=== PATIENT | female | born 1970 | race Caucasian/White ===

== ENCOUNTER 2017-04-12 08:31 | Observation (INO) | payer BC ==
--- NOTE | 2017-04-12 08:45 | EDPHY ---
H & P Stated Complaint: mid sternal cp/did have fall skiing thurs last week/stabbing pain Time Seen by Provider: 04/12/17 08:45 - Personal History LMP (Females 10-55): Irregular Current Tetanus/Diphtheria Vaccine: Unsure - Medical/Surgical History Hx Asthma: No Hx Chronic Respiratory Disease: No Hx Diabetes: No Hx Cardiac Disease: No Hx Renal Disease: No Hx Cirrhosis: No Hx Alcoholism: No Hx HIV/AIDS: No Hx Splenectomy or Spleen Trauma: No Other PMH: denies - Social History Smoking Status: Never smoked Constitutional: Initial Vital Signs Temperature (C) 37 C 04/12/17 08:34 Heart Rate 64 04/12/17 08:34 Respiratory Rate 16 04/12/17 08:34 Blood Pressure 135/84 H 04/12/17 08:34 O2 Sat (%) 97 04/12/17 08:34 O2 Delivery Mode Room Air Allergies/Adverse Reactions: No Known Allergies Allergy (Unverified 04/12/17 08:33) Home Medications: Medication Instructions Recorded Acetaminophen [Tylenol 325mg (*)] 325 mg PO Q6HRS PRN 04/12/17 Cholecalciferol Vit D3 [Vitamin D3 1,000 units PO DAILY 04/12/17 (*)] Ibuprofen [Motrin (*)] 200 mg PO Q6HRS PRN 04/12/17 Levothyroxine [Synthroid 88 mcg 88 mcg PO DAILY06 04/12/17 (*)] Multivitamins [Multivitamin (*)] 1 each PO DAILY 04/12/17 Zolpidem Tartrate [Ambien 5MG (*)] 5 mg PO HS PRN 04/12/17 Medical Decision Making - Diagnostics Imaging Results: Imaging Impressions Abdomen Ultrasound 04/12/17 08:49 Impression: 1. Acalculous cholecystitis with circumferential gallbladder wall thickening, surrounding edema and pericholecystic fluid. 2. No biliary ductal dilation. Findings and recommendations discussed with Emergency Department physician, Sheldon Vera MD at 9:45 hour, 04/12/2017. Final report concurs with initial preliminary interpretation. Imaging: Discussed imaging studies w/ inbound call center representative Radiologist ED Course/Re-evaluation: CHIEF COMPLAINT: Chest pain HISTORY OF PRESENT ILLNESS: This patient is a healthy 46 year old female complaining of midsternal chest pain. This began on Tuesday, two days ago. The discomfort radiates to her right abdomen. Last week on , the patient was back-country skiing and fell. She did not have any chest pain or difficulty breathing on exertion during this trip. She did not have any immediate pain following her fall and denies any other pain or trauma. Currently, she has discomfort in her right upper abdominal region and lower sternal area. No fever, vomiting, diarrhea, shortness of breath, or other associated symptoms. She denies any family history of gallbladder disease. No personal history of abdominal surgery. REVIEW OF SYSTEMS: A 10 point review of systems was performed and is negative with the exception of the elements mentioned in the history of present illness. PHYSICAL EXAM: HR, BP, O2 Sat, RR. Temp noted General Appearance: Alert, well hydrated, appropriate, and non-toxic appearing. Head: Atraumatic without scalp tenderness or obvious injury Eyes: Pupils equal, round, reactive to light and accommodation, EOMI, no trauma , no injection. Ears: Clear bilaterally, no perforation, normal landmarks Nose: Atraumatic, no rhinorrhea, clear. Throat: There is no erythema or exudates, no lesions, normal tonsils, mucus membranes moist. Neck: Supple, nontender, no lymphadenopathy. Respiratory: No retractions, no distress, no wheezes, and no accessory muscle use. Lungs are clear to auscultation bilaterally. Cardiovascular: Regular rate and rhythm, no murmurs, rubs, or gallops. Bilateral carotid, radial, dorsalis pedis, and posterior tibial pulses intact. Good capillary refill all extremities. Gastrointestinal: Right upper quadrant tenderness. Abdomen is soft, non- distended, no masses, no rebound, no guarding, no peritoneal signs. Musculoskeletal: Normal active ROM of all extremities, atraumatic. Neurological: Alert, appropriate, and interactive. Nonfocal neuro exam. Skin: No rashes, good turgor, no nodules on palpation. Past medical history: Hypothyroid. Past surgical history: No history of abdominal surgery. Family history: Noncontributory. Social history: Lives in [place]. . Works as a teacher. PCP Dr. Sandoval DIAGNOSTICS/PROCEDURES/CRITICAL CARE TIME: 08:59 The 12 lead EKG was interpreted by myself. See hard copy and/or "tracemaster" electronic copy for interpretation. Sinus rhythm, rate 50. DIFFERENTIAL DIAGNOSIS: The differential diagnosis for the patient's chest and upper abdominal pain included but was not limited to myocardial ischemia, cholecystitis, pulmonary embolus, chest wall pain, pleural inflammation, and pulmonary infectious causes. MEDICAL DECISION MAKIN46 year old female presents with midsternal and right upper abdominal pain. RUQ tenderness on exam. Plan for US upper abdomen. Labs including CBC, chemistries, troponin, liver/lipase. Plan to administer 1mg IV Dilaudid, 30mg IV Ketorolac, and 4mg IV Zofran. Patient's presentation is more consistent with cholecystitis or other upper abdominal processes than cardiac or respiratory processes. EKG shows sinus rhythm. 09:43 Liver enzymes elevated. WBC within normal limits. 09:[address] Brooke, radiologist. US abdomen positive for sonographic evidence of cholecystitis. No visible stones or ductal dilation, but thickened cobb are present. Plan to consult with general surgery. 09:[address] Staples, general surgeon. She will consult for acalculous cholecystitis. - Data Points Laboratory Results: Laboratory Results 04/12/17 08:55 04/12/17 08:55 04/12/17 04/12/17 04/12/17 08:55 08:55 08:55 WBC 5.63 10^3/uL 10^3/uL (3.80-9.50) RBC 4.22 10^6/uL 10^6/uL (4.18-5.33) Hgb 12.8 g/dL g/dL (12.6-16.3) Hct 38.7 % % (38.0-47.0) MCV 91.7 fL fL (81.5-99.8) MCH 30.3 pg pg (27.9-34.1) MCHC 33.1 g/dL g/dL (32.4-36.7) RDW 14.0 % % (11.5-15.2) Plt Count 251 10^3/uL 10^3/uL (150-400) MPV 10.1 fL fL (8.7-11.7) Neut % (Auto) 69.8 % % (39.3-74.2) Lymph % (Auto) 22.7 % % (15.0-45.0) [place] % (Auto) 5.2 % % (4.5-13.0) Eos % (Auto) 1.4 % % (0.6-7.6) Baso % (Auto) 0.7 % % (0.3-1.7) Nucleat RBC Rel Count 0.0 % % (0.0-0.2) Absolute Neuts (auto) 3.93 10^3/uL 10^3/uL (1.70-6.50) Absolute Lymphs (auto) 1.28 10^3/uL 10^3/uL (1.00-3.00) Absolute Monos (auto) 0.29 10^3/uL L 10^3/uL (0.30-0.80) Absolute Eos (auto) 0.08 10^3/uL 10^3/uL (0.03-0.40) Absolute Basos (auto) 0.04 10^3/uL 10^3/uL (0.02-0.10) Absolute Nucleated RBC 0.00 10^3/uL 10^3/uL (0-0.01) Immature Gran % 0.2 % % (0.0-1.1) Immature Gran # 0.01 10^3/uL 10^3/uL (0.00-0.10) Sodium 143 mEq/L mEq/L (135-145) Potassium 4.3 mEq/L mEq/L (3.5-5.2) Chloride 108 mEq/L mEq/L (97-110) Carbon Dioxide 22 mEq/l mEq/l (22-31) Anion Gap 13 mEq/L mEq/L (8-16) BUN 24 mg/dL H mg/dL (7-23) Creatinine 0.9 mg/dL mg/dL (0.6-1.0) Estimated GFR > 60 Glucose 86 mg/dL mg/dL (70-100) Calcium 9.4 mg/dL mg/dL (8.5-10.4) Total Bilirubin 0.6 mg/dL mg/dL (0.1-1.4) Conjugated Bilirubin 0.1 mg/dL mg/dL (0.0-0.5) Unconjugated Bilirubin 0.5 mg/dL mg/dL (0.0-1.1) AST 80 IU/L H IU/L (14-46) ALT 181 IU/L H IU/L (9-52) Alkaline Phosphatase 84 IU/L IU/L (38-126) Total Protein 6.8 g/dL g/dL (6.3-8.2) Albumin 4.2 g/dL g/dL (3.5-5.0) Lipase 153 IU/L IU/L (23-300) Beta HCG, Qual NEGATIVE Medications Given: Discontinued Medications Ertapenem (Invanz) 1 gm IVP EDNOW ONE PRN Reason: Protocol Stop: 04/12/17 09:47 Last Admin: 04/12/17 10:01 Dose: 1 gm Hydromorphone HCl (Dilaudid) 1 mg IVP EDNOW ONE Stop: 04/12/17 08:50 Last Admin: 04/12/17 09:21 Dose: 1 mg Sodium Chloride (Ns) 1,000 mls @ 0 mls/hr IV EDNOW ONE; Wide Open PRN Reason: Protocol Stop: 04/12/17 08:50 Last Admin: 04/12/17 09:24 Dose: 1,000 mls Sodium Chloride (Ns) 1,000 mls @ 0 mls/hr IV ONCE ONE PRN Reason: Wide Open Stop: 04/12/17 10:21 Last Admin: 04/12/17 10:20 Dose: 1,000 mls Ketorolac Tromethamine (Toradol) 30 mg IVP EDNOW ONE Stop: 04/12/17 08:50 Last Admin: 04/12/17 09:21 Dose: 30 mg Ondansetron HCl (Zofran) 4 mg IVP EDNOW ONE Stop: 04/12/17 08:50 Last Admin: 04/12/17 09:21 Dose: 4 mg Departure - Departure Disposition: To OP Cath/Surgery Clinical Impression: Cholecystitis, acute Condition: Fair Report Scribed for: Sheldon Vera Report Scribed by: Maricruz Medina Date of Report: 04/12/17 Time of Report: 09:34
[2017-04-12] MEDS ORDERED: ONDANSETRON 4 MG/2 ML VIAL IVP ONE (08:49)
[2017-04-12] MEDS ORDERED: HYDROmorphONE/DILAUDID 1 MG/ML INJ IVP ONE (08:49)
[2017-04-12] MEDS ORDERED: NS 1,000 ML IV ONE ×2 (08:49→10:20)
[2017-04-12] MEDS ORDERED: KETOROLAC 30 MG/1 ML SDV IVP ONE (08:49)
--- NOTE | 2017-04-12 08:54 | CPEKG ---
Heart Rate: 50 RR Interval: 1200 P-R Interval: 144 QRSD Interval: 82 QT Interval: 444 QTC Interval: 405 P [place]: 10 QRS [place]: 15 T Wave [place]: 10 EKG Severity - NORMAL ECG - EKG Impression: SINUS RHYTHM Electronically Signed By: Sheldon Vera 12-Apr-2017 14:09:33
[2017-04-12 09:05] LABS: PLATELET COUNT 251 10^3/uL (150-400)
[2017-04-12] MEDS ORDERED: ERTAPENEM 1 GM VIAL IVP ONE (09:46)
[2017-04-12] MEDS ORDERED: ACETAMINOPHEN 325 MG TAB PO PRN (10:37)
[2017-04-12] MEDS ORDERED: ZOLPIDEM TARTRATE 5 MG TAB PO PRN (10:37)
[2017-04-12] MEDS ORDERED: D5W 1/2 NS W/ 20 KCl/L 1,000 ML IV SCH (10:45)
[2017-04-12] MEDS: ONDANSETRON 4 MG/2 ML VIAL IVP PRN ×2 (10:55→18:27)
--- NOTE | 2017-04-12 13:29 | GCON ---
[f rep st] CONSULTATION HISTORY OF PRESENT ILLNESS: The patient is a 46-year-old female with a past history of hypothyroidism, presenting for right upper quadrant pain for the last 2-3 days. The patient was country skiing last week, returned home Tuesday , where she started to experience colicky right upper quadrant pain. Tuesday evening, this pain became constant and increased. Pain continued through Tuesday and worsened today, which brought her into the ER for evaluation. She describes the pain as a sharp, stabbing, aching pain in the right upper quadrant , which radiates laterally. It keeps her up at night. It is made worse when lying on her right side and with taking deep breaths. It is made better by lying on her back. Advil and Tylenol have offered no relief. She denies any fevers, chills, nausea, vomiting, diarrhea. The pain is not made worse with food. PAST MEDICAL HISTORY: Hypothyroidism ALLERGIES: No known drug allergies. MEDICATIONS: Levothyroxine. SOCIAL HISTORY: No tobacco use. 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 REVIEW OF SYSTEMS: 10 point review of systems negative except HPI PHYSICAL EXAM: General: Pleasant, well-nourished and well-groomed woman HENT: Normocephalic, no gross hearing deficits, mucous membranes moist, pupils equal and round, no scleral icterus Neck: Trachea midline, no cervical lymphadenopathy Lungs: Clear to auscultation bilaterally, No increased work of breathing Cardiac: Regular rate, no peripheral edema Abdomen: Bowel sounds present, soft and nontender. Pain in epigastric area and right upper quadrant. No palpable Mass Skin: Warm and dry. MSK: Normal nails Psych: Mood and affect normal Neuro: Grossly intact LABORATORY DATA: Results reviewed. WBC wnl. Elevated AST of 80, elevated ALT of 181. Ultrasound imaging showed wall thickening at 7 mm, with pericholecystic fluid. ASSESSMENT: The patient is a 46-year-old female with acalculous cholecystitis. PLAN: I will take her to the operating room for laparoscopic cholecystectomy the risks and benefits including but not limited to stroke, heart attack, , blood clots, infection, bleeding, damage to surrounding structures such as the common bile duct and need for additional procedures were discussed. Bianka computer education teacher to the OR /[id number]/MODL MTDD
[2017-04-12] MEDS ORDERED: BUPIVACAINE 0.5% 10 ML SDV ONE ×2 (13:31→15:41)
--- NOTE | 2017-04-12 15:33 | ASMTCMCOM ---
CM Note CM Note Notes: Patient admitted through ED for c/o of abdominal pain. Likely needs cholysystectomy. For surgery. Most likely to dc Independently. CM to follow. Date Signed: 04/12/2017 03:32 PM Electronically Signed By:Maria T Conrad RN
[2017-04-12] MEDS ORDERED: LR 1,000 ML IV ONE (15:52)
[2017-04-12] MEDS ORDERED: MIDAZOLAM 2 MG/2 ML VIAL ONE (16:14)
[2017-04-12] MEDS ORDERED: MIDAZOLAM 2 MG/2 ML VIAL IVP ONE (16:15)
--- NOTE | 2017-04-12 16:18 | PDANEPAE ---
ANE History of Present Illness laparoscopic cholecystectomy ANE Past Medical History - Pulmonary History Hx Oxygen in Use at Home: No Hx Sleep Apnea: No Sleep Apnea Screening Result - Last Documented: Negative - Endocrine History Hx Diabetes: No - Chronic Pain History Chronic Pain: Yes ANE Review of Systems Review of systems is: negative Review of Systems: - Exercise capacity METS (RN): 4 METS ANE Patient History - Allergies Allergies/Adverse Reactions: No Known Allergies Allergy (Unverified 04/12/17 08:33) - Home Medications Home medications: home medication list seen and reviewed Home Medications: Acetaminophen [Tylenol 325mg (*)] 325 mg PO Q6HRS PRN 04/12/17 [Last Taken Unknown] Cholecalciferol Vit D3 [Vitamin D3 (*)] 1,000 units PO DAILY 04/12/17 [Last Taken Unknown] Ibuprofen [Motrin (*)] 200 mg PO Q6HRS PRN 04/12/17 [Last Taken Unknown] Levothyroxine [Synthroid 88 mcg (*)] 88 mcg PO DAILY06 04/12/17 [Last Taken ] Multivitamins [Multivitamin (*)] 1 each PO DAILY 04/12/17 [Last Taken Unknown] Zolpidem Tartrate [Ambien 5MG (*)] 5 mg PO HS PRN 04/12/17 [Last Taken 1 Week Ago ~04/05/17] - NPO status NPO Status: no food or drink >8 hours NPO Since - Liquids (Date): 04/12/17 NPO Since - Liquids (Time): 07:30 NPO Since - Solids (Date): 04/12/17 NPO Since - Solids (Time): 07:30 - Smoking Hx Smoking Status: Never smoked ANE Labs/Vital Signs - Labs Result Diagrams: 04/12/17 08:55 04/12/17 08:55 - Vital Signs Blood Pressure: 136/67 Heart Rate: 46 Respiratory Rate: 18 O2 Sat (%): 98 Height: 162.56 cm Weight: 58.967 kg ANE Physical Exam - Airway Neck exam: FROM Mallampati Score: Class 1 Mouth exam: normal dental/mouth exam - Pulmonary Pulmonary: no respiratory distress - Cardiovascular Cardiovascular: regular rate and rhythym - ASA Status ASA Status: II ANE Anesthesia Plan Anesthesia Plan: general endotracheal anesthesia
[2017-04-12] MEDS ORDERED: fentaNYL 250 MCG/5 ML INJ ONE (16:27)
[2017-04-12] MEDS ORDERED: SUGAMMADEX SODIUM 200 MG/2 ML VIAL IVP ONE (16:27)
[2017-04-12] MEDS ORDERED: LIDOCAINE 2% 100 MG/5 ML SYR ONE (16:27)
[2017-04-12] MEDS ORDERED: ROCURONIUM 50 MG/5 ML VIAL ONE (16:27)
[2017-04-12] MEDS ORDERED: DEXAMETHASONE 4 MG/ML VIAL ONE (16:27)
[2017-04-12] MEDS ORDERED: ONDANSETRON 4 MG/2 ML VIAL ONE (16:27)
[2017-04-12] MEDS ORDERED: PROPOFOL 200 MG/20 ML VIAL ONE (16:27)
[2017-04-12] MEDS ORDERED: ONDANSETRON 4 MG/2 ML VIAL IVP PRN (17:06)
[2017-04-12] MEDS ORDERED: PROMETHAZINE HCL 25 MG/ML INJ IVP PRN (17:06)
[2017-04-12] MEDS ORDERED: MEPERIDINE 25 MG/ML SYR IVP PRN (17:06)
[2017-04-12] MEDS ORDERED: NALOXONE HCL 0.4 MG/ML INJ IVP PRN (17:06)
[2017-04-12] MEDS ORDERED: DEXAMETHASONE 4 MG/ML VIAL IVP PRN (17:06)
[2017-04-12] MEDS ORDERED: HYDROCODONE/APAP 5/325 TAB PO PRN ×2 (17:06→17:19)
[2017-04-12] MEDS ORDERED: OXYCODONE/APAP 5/325 TAB PO PRN (17:06)
[2017-04-12] MEDS ORDERED: fentaNYL 100 MCG/2 ML INJ IVP PRN (17:06)
[2017-04-12] MEDS ORDERED: ACETAMINOPHEN 500 MG TAB PO PRN (17:06)
--- NOTE | 2017-04-12 17:06 | POSTANESTH ---
Post Anesthetic Evaluation Cardiovascular Status: Normal, Stable, Similar to Pre-Op Cond Respiratory Status: Normal, Stable, Similar to Pre-op Cond. Level of Consciousness/Mental Status: Can Participate in Eval, Mildly Sleepy, Arousable Pain Control: Adequate, Prn Tx Ordered Nausea/Vomiting Control: Adequate, Prn Tx Ordered Complications Possibly Related to Anesthesia: None Noted
[2017-04-12] MEDS ORDERED: KETOROLAC 30 MG/1 ML SDV ONE (17:16)
--- NOTE | 2017-04-12 17:18 | POSTOPPROG ---
Post Op Note Date of Operation: 04/12/17 Surgeon: Nikkie Staples Lumber Mover: hema Anesthesiologist: doc Anesthesia: GET(General Endotracheal) Pre-op Diagnosis: acute acalculous cholecystitis Post-op Diagnosis: same Indication: 46yo F with abdominal pain and findings of acute pia on US Procedure: lap pia Findings: pericholecystic fluid, inflammation Inf/Abcess present in the surg proc area at time of surgery?: No EBL: Minimal Specimen(s): gallbladder
[2017-04-12] MEDS ORDERED: diphenhydrAMINE 25 MG CAP PO PRN (17:19)
[2017-04-12] MEDS ORDERED: traMADol 50 MG TAB PO PRN (17:20)
[2017-04-12] MEDS ORDERED: fentaNYL 100 MCG/2 ML INJ ONE (17:54)
[2017-04-12] MEDS: KETOROLAC 15 MG/1 ML SDV IVP SCH ×2 (18:10→23:07)
--- NOTE | 2017-04-12 19:26 | GOP ---
[f rep st] OPERATIVE REPORT DATE OF OPERATION: 04/12/2017 SURGEON: Nikkie Staples MD SCRAPER LOADER OPERATOR: Rocío Álvarez, REJI ANESTHESIA: General. ANESTHESIOLOGIST: Jose Luis Simpson MD PREOPERATIVE DIAGNOSIS: Acute acalculous cholecystitis. POSTOPERATIVE DIAGNOSIS: Acute acalculous cholecystitis. PROCEDURE PERFORMED: Laparoscopic cholecystectomy. FINDINGS: Pericholecystic fluid. SPECIMENS: Gallbladder. ESTIMATED BLOOD LOSS: 5 cc. INDICATIONS: The patient is a 46-year-old woman with right upper quadrant pain. Ultrasound was obta ined which showed gallbladder wall thickening and pericholecystic fluid. DESCRIPTION OF PROCEDURE: Patient was brought into the operating room, placed supine on the table, a nd general anesthesia was administered. Her abdomen was prepped and draped in the usual sterile fash ion. I infiltrated all sites with 0.5% Marcaine prior to making incisions. I elevated her umbilicus . I made an incision. I inserted the Veress needle. It passed the hanging drop test. Her abdomen insufflated easily to a pressure of 15 mmHg. I placed a 5 mm trocar with a camera at this site. Und er direct vision, I placed a 10 mm subxiphoid trocar and 2 additional 5 mm trocars in the right upper quadrant. I lifted her gallbladder cephalad and laterally to expose the triangle of [place]ot. It was inflamed. I was able to identify the cystic artery and cystic duct and skeletonize these so that the y were the only 2 structures directly entering the gallbladder. They were each singly clipped toward the gallbladder, doubly clipped distally, and transected with scissors. I removed the gallbladder f rom the gallbladder fossa with electrocautery. I placed the gallbladder in an EndoCatch bag and retr ieved it via the 10 mm trocar. Hemostasis was achieved in the liver bed. The clips were in satisfac tory position. No injuries were noted. I removed the ports under direct vision and allowed the abdo men to desufflate. I closed the fascia at the 10 mm trocar site with 0 Vicryl. I closed skin with 4 -0 Monocryl. Dermabond applied. She was awakened in the operating room, extubated, transferred to P ACU in stable condition. /[id number]/MODL
[2017-04-12] MEDS ORDERED: HYDROmorphONE/DILAUDID 2 MG/ML INJ IVP PRN ×2 (19:34→20:02)
[2017-04-12] MEDS ORDERED: HYDROmorphONE/DILAUDID 2 MG TAB PO PRN (20:02)
[2017-04-13] MEDS: ONDANSETRON DISINTEGRATING 4 MG TAB PO PRN ×2 (00:42→08:29)
[2017-04-13] MEDS: oxyCODONE IR 5 MG TAB PO PRN ×2 (00:42→08:29)
[2017-04-13] MEDS: KETOROLAC 15 MG/1 ML SDV IVP SCH ×2 (05:14→12:34)
[2017-04-13] MEDS ORDERED: LEVOTHYROXINE 88 MCG TAB PO SCH (06:00)
[2017-04-13 08:47] VITALS: TEMP 98
[2017-04-13] MEDS ORDERED: PROMETHAZINE HCL 25 MG/ML INJ IVP PRN (11:01)
[2017-04-13 11:14] LABS: PLATELET COUNT 251 10^3/uL (150-400)
--- NOTE | 2017-04-13 11:20 | SOAPPROG ---
SOAP Progress Note Assessment/Plan: Assessment: POD # 1 s/p lap pia nausea with narcotics will check labs to make sure no post op issues If feels improved, home today, otherwise tomorrow Hypothyroid S: Still sore. Nausea after Oxy O: Abdomen is soft. Incisions cdi Plan: 04/13/17 11:18 Objective: Vital Signs Temp Pulse Resp BP Pulse Ox 36.6 C 42 L 18 120/67 94 04/13/17 08:46 04/13/17 08:46 04/13/17 08:46 04/13/17 08:46 04/13/17 08:46 Laboratory Results 04/13/17 11:09 04/12/17 04/13/17 04/14/17 05:59 05:59 05:59 Intake Total 4570 Output Total 6 Balance 4564 ICD10 Worksheet Patient Problems: Problems Problem Status Onset Cholecystitis, acute Acute
[2017-04-13 13:29] VITALS: BP 109/69; PULSE 51; RESP 16; O2SAT 96
== END 2017-04-13 15:07 | disposition home or self-care (01) ==
LOC: INTOOBSV 09:47 → F1N 10:37
PROVIDERS: ADMIT Surgery; ATTEND Surgery
PROC: 0FT44ZZ Resection of Gallbladder, Percutaneous Endoscopic Approach (ICD-10-PCS; principal; 2017-04-12 16:00)
DX: K81.0 Acute cholecystitis (principal); E86.9 Volume depletion, unspecified; E03.9 Hypothyroidism, unspecified
CPT/HCPCS: 47562; 76705; 93005; G0378; J1100; J1170; J1335; J1885; J1956; J2001; J2250; J2270; J2405; J2704; J3010

== ENCOUNTER → 2017-08-15 | Outpatient (CLI) | payer BC | LOC: FIMAGING 10:43 | PROVIDERS: ATTEND Internal Medicine | DX: Z12.31 Encounter for screening mammogram for malignant neoplasm of breast (principal) ==